=== PATIENT | female | born 1960 | race Caucasian/White ===

== ENCOUNTER 2020-12-17 18:18 | Emergency (ER) | payer OTHER ==
[~2020-12-17] VITALS: Ht 162.6 cm; Wt 136.1 kg
[2020-12-17 18:29] VITALS: Ht 162.6 cm; Wt 136.1 kg
[2020-12-17] MEDS ORDERED: HYDROCODONE BIT1 T51 PO ×2 (20:19→20:20)
[2020-12-17] MEDS ORDERED: NAPROXEN375 MG PO ×2 (20:19→20:20)
[2020-12-17 20:35] VITALS: BP 144/82
[2020-12-17] MEDS ORDERED: ACETAMINOPHEN-H1 TA1 PO (23:59)
== END 2020-12-17 20:35 | disposition home or self-care (01) ==
LOC: ED 18:18
DX: S42.121A Displaced fracture of acromial process, right shoulder, initial encounter for closed fracture (principal); S43.004A Unspecified dislocation of right shoulder joint, initial encounter; I10 Essential (primary) hypertension; Z90.49 Acquired absence of other specified parts of digestive tract; W18.30XA Fall on same level, unspecified, initial encounter; Y93.89 Activity, other specified; Y92.89 Other specified places as the place of occurrence of the external cause; Y99.8 Other external cause status
CPT/HCPCS: J1885; J2270; J2405